=== PATIENT | female | born 1985 | race Caucasian/White ===

== ENCOUNTER 2016-12-10 21:55 | Emergency (ER) | payer MEDICAID ==
[~2016-12-10] VITALS: Ht 149.9 cm; Wt 59.5 kg
[~2016-12-10 21:55] MED LIST: ALBU8.5H3 INH; AZIT250T94 PO; BEN25 PO; D-ME473S2 PO; PRED20TA PO
[2016-12-10 22:02] VITALS: Ht 149.9 cm; Wt 59.5 kg
--- NOTE | 2016-12-10 23:19 | ERD ---
ER Documentation Chief Complaint Date/Time DATE: 12/10/16 TIME: 23:16 Chief Complaint RIGHT HAND INJURY PLAYING SOCCER HPI This 31-year-old female presents to emergency department today for right wrist/ hand injury. Injury happened earlier today while playing soccer. Patient reports that she was close contact with another player running [id number] somehow they collided. Patient reports she heard a crack in her right hand and she is been in pain ever since. Patient has limited wrist movement, and refuses to flex her fingers. Patient's hands are warm, capillary refill is brisk. Normal sensation. Patient will writes pain with movement. Patient denies any other injury, denies hitting her head or loss of consciousness. ROS All systems reviewed and are negative except as per history of present illness. Medications Home Meds Active Scripts Ibuprofen* (Motrin*) 600 Mg Tab, 600 MG PO Q6, #30 TAB Prov:MARKATILIO 12/11/16 Diphenhydramine Hcl* (Benadryl*) 25 Mg Cap, 25 MG PO Q6, #20 CAP Prov:FREDERICK SANDY PA-C 08/20/16 Dextromethorphan Hb-Promethazine Hcl* (Promethazine DM* Syrup) 473 Ml Syrup, 5 ML PO Q6 Y for COUGH, #1 BOTTLE Prov:FREDERICK SANDY PA-C 08/20/16 Azithromycin* (Zithromax*) 250 Mg Tablet, 250 MG PO .ZPACK DIRECTED, #6 TAB TAKE 500 MG (2 TABS) THE FIRST DAY THEN 250 MG (1 TAB) DAYS 2-5 Prov:FREDERICK SANDY PA-C 08/20/16 Prednisone* (Prednisone*) 20 Mg Tab, 40 MG PO DAILY for 4 Days, TAB Prov:FREDERICK SANDY PA-C 08/20/16 Reported Medications Albuterol Sulfate* (Proair HFA*) 8.5 Gm Hfa.aer.ad, 2 INH INH Q4, 0 Refills 07/19/10 Allergies Allergies: Coded Allergies: Amoxicillin (Verified Allergy, Severe, 09/30/14) PMhx/Soc History of Surgery: No Anesthesia Reaction: No Hx Neurological Disorder: No Hx Respiratory Disorders: No Hx Cardiac Disorders: No Hx Psychiatric Problems: No Hx Miscellaneous Medical Probl: No Hx Alcohol Use: No Hx Substance Use: No Hx Tobacco Use: No Smoking Status: Never smoker Physical Exam Vitals Vital Signs Date Time Temp Pulse Resp B/P Pulse Ox O2 Delivery O2 Flow Rate FiO2 12/10/16 22:02 97.4 94 16 116/87 98 Vital stable, triage notes reviewed Physical Exam Const: No acute distress Head: Atraumatic Eyes: Normal Conjunctiva ENT: Normal External Ears, Nose and Mouth. Neck: Full range of motion. Resp: Cardio: Abd: Skin: Back: Ext: Hand - bilateral: Skin: No laceration,, tenderness to right fourth and fifth metacarpal Compartments: Soft, tender, no obvious deformity Sensation: Intact shoulder/pinky/middle finger/thumb web space Bones: Hypersensitive to movement Snuffbox: Nontender bit hypersensitive to any movement Joints: No effusion Wrist: Flex/Ext: Normal Uln/Radial deviation: Normal Pron/Supination Normal Finger: Flex/Ext: Decreased movement of fingers Add/abd: Decreased Thumb: Flex/Ext: Normal Opposition: Pain with movement of phalanx to thumb fourth and fifth digit Thumbs up: Normal Neur: Awake and alert Psych: Normal Mood and Affect Results 24 hrs Current Medications Medications (Trade) Dose Ordered Sig/Ceasar Route PRN Reason Start Time Stop Time Status Last Admin Dose Admin Ibuprofen (Motrin) 600 mg ONCE ONCE PO 12/10/16 23:30 12/10/16 23:31 DC 12/10/16 23:50 Procedures/MDM PROCEDURE: XR Hand. CLINICAL INDICATION: Injury to the right hand. TECHNIQUE: AP, oblique and lateral views of the right hand were obtained. COMPARISON: No prior studies are available for comparison. FINDINGS: There is normal mineralization. Nondisplaced oblique midshaft fracture of the right fourth metacarpal. Remaining osseous structures are otherwise without evident acute fracture dislocation. There are no significant degenerative changes. There is no significant soft tissue swelling. IMPRESSION: Nondisplaced oblique midshaft fracture of the right fourth metacarpal. RPTAT: [facility] Physician Dorie Date Time Electronically viewed and signed by Physician Dorie on 12/10/2016 23:46 PROCEDURE: XR Wrist. CLINICAL INDICATION: Injury. TECHNIQUE: AP, lateral dedicated scaphoid and oblique views of the right wrist were performed. COMPARISON: No prior studies are available for comparison. FINDINGS: Nondisplaced midshaft oblique fracture of the right fourth metacarpal. Remaining osseous structures of the partially visualized right hand and the right wrist are unremarkable. The bones appear well mineralized. The joint spaces are well preserved. The soft tissues appear intact. IMPRESSION: 1. Nondisplaced midshaft oblique fracture of the right fourth metacarpal. 2. Otherwise, no acute fracture in the right wrist. Electronically viewed and signed by Physician Dorie on 12/10/2016 23:47 This pleasant 31-year-old female presents to emergency department today for right hand injury. Patient initially treated for pain with Motrin. Patient states injury happened while playing soccer, reports collided into another player. Hardy a snap and has had pain in her right hand ever since. X-rays were obtained to rule out fracture, findings: There is normal mineralization. Nondisplaced opaque midshaft fracture of the right fourth metacarpal. Remaining osseous structures are otherwise without evident acute fracture or dislocation. There are no significant degenerative changes. There is no significant soft tissue swelling. Impression; nondisplaced oblique midshaft fracture of the right fourth metacarpal. Patient was placed in a ulnar gutter with some spica splint, prescribed Motrin, she will be given a copy of radiology findings, information/referral to [facility], and information on community clinics. I feel patient can be managed by primary care physician in the outpatient setting, keep cast in place until followed up with hand specialist, return to emergency room for increased swelling, pain, or difficulty moving fingers. Splint Assessment: Neurovascularly intact post splint placement with good fit. Departure Diagnosis: Primary Impression: Fracture, metacarpal shaft Encounter type: initial encounter Metacarpal bone: fourth Fracture type: closed Fracture alignment: nondisplaced Laterality: right Qualified Code: S62.354A - Closed nondisplaced fracture of shaft of fourth metacarpal bone of right hand, initial encounter Condition: Good Patient Instructions: Fracture, Hand (Closed) Additional Instructions: Thank you for for coming to [facility] for your care today. Please ask your nurse or provider if you have questions about your care today and do not leave until all your questions have been answered. Please use any medications given as directed and follow-up with your doctor (or the doctor you were referred to) in the next 2-3 days. If you do not have a primary care doctor you may follow up at the [facility] (listed below). You may also use motrin and tylenol as needed for fever and/or pain unless instructed otherwise by your provider or nurse. Indications for more urgent follow-up have been discussed, but you may return to the Emergency Department at ANY time for any worrisome or worsening symptoms. If you have abdominal pain, please know that no test or exam you received is perfect and you should follow up within 8 hours for continued pain. If you had any imaging studies today, such as an X-Ray or CT Scan, these studies will be reviewed later by a radiologist. You will be called if there are important findings that were not identified today, so make sure the contact information you provided at registration is correct. If you received any narcotic pain control medicine today, such as Vicodin, Morphine or Dilaudid, your coordination and judgment may be affected for a number of hours. Please do not drive or operate heavy machinery, and you may want someone to assist you at home. If you were given a prescription for narcotic medication, be aware that it is very addictive- use sparingly and only if necessary. ATILIO FLORES Dec 10, 2016 23:19
[2016-12-10] MEDS ORDERED: IBUPROFEN 600 MG TAB PO ONE (23:30)
--- NOTE | 2016-12-10 23:46 | RADRPT ---
PROCEDURE: XR Hand. CLINICAL INDICATION: Injury to the right hand. TECHNIQUE: AP, oblique and lateral views of the right hand were obtained. COMPARISON: No prior studies are available for comparison. FINDINGS: There is normal mineralization. Nondisplaced oblique midshaft fracture of the right fourth metacarpal. Remaining osseous structures are otherwise without evident acute fracture dislocation. There are no significant degenerative changes. There is no significant soft tissue swelling. IMPRESSION: Nondisplaced oblique midshaft fracture of the right fourth metacarpal. RPTAT: [facility] Physician Dorie Date Time Electronically viewed and signed by Physician Dorie on 12/10/2016 23:46 RS/
--- NOTE | 2016-12-10 23:48 | RADRPT ---
PROCEDURE: XR Wrist. CLINICAL INDICATION: Injury. TECHNIQUE: AP, lateral dedicated scaphoid and oblique views of the right wrist were performed. COMPARISON: No prior studies are available for comparison. FINDINGS: Nondisplaced midshaft oblique fracture of the right fourth metacarpal. Remaining osseous structures of the partially visualized right hand and the right wrist are unremarkable. The bones appear well mineralized. The joint spaces are well preserved. The soft tissues appear intact. IMPRESSION: 1. Nondisplaced midshaft oblique fracture of the right fourth metacarpal. 2. Otherwise, no acute fracture in the right wrist. RPTAT: [facility] Physician Dorie Date Time Electronically viewed and signed by Physician Dorie on 12/10/2016 23:47 RS/
[2016-12-11] MEDS ORDERED: IBUP-1542 PO (00:07)
[2016-12-11] MEDS ORDERED: HYDR-906 PO (00:12)
== END 2016-12-11 00:55 | disposition home or self-care (01) ==
LOC: FTE 21:55
DX: S62.354A Nondisplaced fracture of shaft of fourth metacarpal bone, right hand, initial encounter for closed fracture (principal); W50.0XXA Accidental hit or strike by another person, initial encounter; Y92.9 Unspecified place or not applicable
CPT/HCPCS: 29105; 73110; 73130; Z7502; Z7610

== ENCOUNTER 2017-03-09 22:51 | Emergency (ER) | payer MEDICAID ==
[~2017-03-09] VITALS: Ht 149.9 cm; Wt 61.5 kg
[~2017-03-09 22:51] MED LIST changes: +HYDR-906 PO; +IBUP-1542 PO
[2017-03-09 22:55] VITALS: Ht 149.9 cm; Wt 61.5 kg
[2017-03-10] MEDS ORDERED: morphine 10 MG INJ IM ONE
--- NOTE | 2017-03-10 00:36 | RADRPT ---
PROCEDURE: XR hand. CLINICAL INDICATION: Trauma TECHNIQUE: AP, lateral and oblique views of the right hand was obtained. COMPARISON: There are no similar studies submitted for comparison. FINDINGS: There is normal bone mineralization. There is an acute fracture of the distal fifth metacarpal diaph ysis with overlying soft tissue swelling and moderate volar angulation as well as some comminution. No osseous erosions are identified. The joint spaces are within normal limits. IMPRESSION: Distal fifth metacarpal fracture. RPTAT: HIKT .David Carpenter MD, MD Date Time Electronically viewed and signed by .David Carpenter MD, MD on 03/10/2017 00:35 .T/
[2017-03-10] MEDS ORDERED: LIDOCAINE 1% (MDV) 20 ML INJ ONE (01:06)
[2017-03-10] MEDS ORDERED: LIDOCAINE 1% (MDV) 20 ML INJ SC ONE (01:30)
[2017-03-10] MEDS ORDERED: PROPOFOL 200 MG INJ IV ONE (02:00)
[2017-03-10] MEDS ORDERED: ONDANSETRON 4 MG INJ ONE (02:02)
[2017-03-10] MEDS ORDERED: ONDANSETRON 4 MG INJ IV STA (02:11)
--- NOTE | 2017-03-10 03:54 | RADRPT ---
PROCEDURE: XR hand. CLINICAL INDICATION: Trauma TECHNIQUE: AP, lateral and oblique views of the right hand was obtained. COMPARISON: 03/09/2017 FINDINGS: There has been interval reduction of the distal fifth metacarpal fracture. Fragments are in near an atomic alignment. An overlying splint is noted. IMPRESSION: Interval reduction of the fifth metacarpal fracture. RPTAT: HIKT .David Carpenter MD, MD Date Time Electronically viewed and signed by .David Carpenter MD, on 03/10/2017 03:54 .T/
[2017-03-10] MEDS ORDERED: KETOROLAC 30 MG INJ IV STA (04:02)
[2017-03-10] MEDS ORDERED: NAPR-688 PO (04:07)
[2017-03-10] MEDS ORDERED: HYDR-906 PO (04:07)
--- NOTE | 2017-03-10 04:26 | ERD ---
ER Documentation Chief Complaint Date/Time DATE: 03/10/17 TIME: 04:10 Chief Complaint RIGHT HAND INJURY, PUNCHED WALL, POSSIBLE DISLOCATION/FRACTURE PINKY HPI This 31-year-old female presents with right hand pain after she punched a wall for recreational reasons.. She has had swelling at the same site. She has had no other injuries. She has no trouble moving the wrist or elbow. ROS All systems reviewed and are negative except as per history of present illness. Medications Home Meds Active Scripts Naproxen* (Naproxen*) 500 Mg Tablet, 500 MG PO BID Y for PAIN, #24 TAB Prov:GREENLEDY DO 03/10/17 Hydrocodone/Acetaminophen ([place] 5-325 Tablet) 1 Each Tablet, 1 EACH PO Q6, #14 TAB Prov:GREEN,LEDY DO 03/10/17 Hydrocodone/Acetaminophen ([place] 5-325 Tablet) 1 Each Tablet, 1 TAB PO Q6H Y for PAIN, #7 TAB Prov:AMRK,ATILIO 12/11/16 Ibuprofen* (Motrin*) 600 Mg Tab, 600 MG PO Q6, #30 TAB Prov:MARK,ATILIO 17 Diphenhydramine Hcl* (Benadryl*) 25 Mg Cap, 25 MG PO Q6, #20 CAP Prov:FREDERICK SANDY PA-C 08/20/16 Dextromethorphan Hb-Promethazine Hcl* (Promethazine DM* Syrup) 473 Ml Syrup, 5 ML PO Q6 Y for COUGH, #1 BOTTLE Prov:FREDERICK SANDY PA-C 08/20/16 Azithromycin* (Zithromax*) 250 Mg Tablet, 250 MG PO .ZPACK DIRECTED, #6 TAB TAKE 500 MG (2 TABS) THE FIRST DAY THEN 250 MG (1 TAB) DAYS 2-5 Prov:FREDERICK SANDY PA-C 08/20/16 Prednisone* (Prednisone*) 20 Mg Tab, 40 MG PO DAILY for 4 Days, TAB Prov:FREDERICK SANDY PA-C 08/20/16 Reported Medications Albuterol Sulfate* (Proair HFA*) 8.5 Gm Hfa.aer.ad, 2 INH INH Q4, 0 Refills 07/19/10 Allergies Allergies: Coded Allergies: Amoxicillin (Verified Allergy, Severe, 09/30/14) PMhx/Soc History of Surgery: Yes (left ovary removed) Anesthesia Reaction: No Hx Neurological Disorder: No Hx Respiratory Disorders: Yes (asthma) Hx Cardiac Disorders: No Hx Psychiatric Problems: Yes (depression, anxiety) Hx Miscellaneous Medical Probl: No Hx Alcohol Use: No Hx Substance Use: No Hx Tobacco Use: Yes Smoking Status: Current some day smoker Physical Exam Vitals Vital Signs Date Time Temp Pulse Resp B/P Pulse Ox O2 Delivery O2 Flow Rate FiO2 03/09/17 22:55 100.0 95 17 132/63 95 Physical Exam Const: [] No distress Head: Atraumatic Eyes: Normal Conjunctiva ENT: Normal External Ears, Nose and Mouth. Resp: Clear to auscultation bilaterally Cardio: Regular rate and rhythm, no murmurs Ext: Right hand with lateral metacarpal edema and tenderness as well as slight shortening of the finger. No skin breakage noted. Distal capillary refill less than 1 second. Radial pulse intact. No tenderness palpation of the carpal bones or snuffbox. Normal elbow movement. Neur: Awake and alert and oriented 3, no focal deficit Psych: Normal Mood and Affect Results 24 hrs Current Medications Medications (Trade) Dose Ordered Sig/Ceasar Route PRN Reason Start Time Stop Time Status Last Admin Dose Admin Morphine Sulfate (morphine) 6 mg ONCE ONCE IM 03/10/17 00:00 03/10/17 00:01 DC 03/10/17 00:11 Lidocaine (Xylocaine 1% (Mdv) 20 ml) 20 ml ONCE ONCE SC 03/10/17 01:30 03/10/17 01:31 DC Lidocaine (Xylocaine 1% (Mdv) 20 ml) 20 ml STK-MED ONCE .ROUTE 03/10/17 01:06 03/10/17 01:07 DC Propofol (Diprivan) 80 mg ONCE ONCE IV 03/10/17 02:00 03/10/17 02:01 DC Ondansetron HCl (Zofran Inj) 4 mg STK-MED ONCE .ROUTE 03/10/17 02:02 03/10/17 02:03 DC Ondansetron HCl (Zofran Inj) 4 mg ONCE STAT IV 03/10/17 02:11 03/10/17 02:12 DC 03/10/17 02:13 Acetaminophen/ Hydrocodone Bitart ([place] (10/325)) 1 tab ONCE ONCE PO 03/10/17 04:30 03/10/17 04:31 Ketorolac Tromethamine (Toradol) 30 mg ONCE STAT IV 03/10/17 04:02 03/10/17 04:03 DC Procedures/MDM Boxer's fracture sustained by the normal mechanism. Reduced in the emergency room. Patient was initially given 6 mg of IM morphine. She continued to have pain. The fracture was angulated greater than 40 and closer to 75. This required reduction. Patient was afraid that she would experience too much pain during the reduction. Preprocedure sedation with propofol was performed. Patient is also given a hematoma block. Fracture reduction was perfect. Discharging the patient with [facility] hand clinic this week. X-ray interpretation right hand: Fifth metacarpal neck fracture that is angulated approximately 70 with shortening of the fifth digit. No other fracture dislocation X-ray interpretation right hand postreduction: Outstanding interval reduction of fifth metacarpal neck fracture. Splint in place. Procedural sedation note: Patient was placed on a monitor with pulse ox, and tidal CO2, respiratory at bedside. She was given insulin doses of 40 mg of propofol to 120 which provided moderate sedation. Patient did require an extra 20 during the procedure. Total of 140 mg propofol was used. Patient's vital signs remained stable. She tolerated the sedation very well all procedures performed. She emerged from sedation approximately 10 minutes later. No complications Fracture reduction note, left fifth metacarpal neck fracture: Traction was applied in the fifth digit and partially in the fourth digit by an surgical supply assistant while I manipulated the fracture fragment into place. I felt good alignment. X -ray done. Just prior to splinting confirmed good alignment. Splint was placed. Patient taught the procedure well no complications. Hematoma nerve block note: Dorsal hand was cleaned with alcohol. Approximately the mid section of the swelling and deformity 27-gauge needle was placed. There was positive blood return. I injected approximately 2 cc of lidocaine without epinephrine into the hematoma area. Patient tolerated procedure well with no complications. ED splint application note: Fiberglas splint angulated 45 of left hand is basically 1/5 metacarpal gutter splint. Fiberglass splint was placed while I held traction on the fifth digit. Patient tolerated procedure well with no complications. Informed her neurovascular assessment after the splint application the patient had good motor, capillary refill less than 1 second, was in a position of comfort.. Departure Diagnosis: Primary Impression: Displaced fracture of neck of right fifth metacarpal bone Condition: Stable Patient Instructions: Lucila Boxer's Referrals: [facility] Additional Instructions: Call your primary care doctor TOMORROW for an appointment during the next 1 WEEK.Tell the law secretary that you were referred from this facility. See the doctor sooner or return here if your condition worsens before your appointment time. LEDY JASSO DO Mar 10, 2017 04:25
[2017-03-10 04:27] VITALS: BP 116/79; PULSE 57; RESP 17; TEMP 98.7
[2017-03-10] MEDS ORDERED: HYDROCODONE/APAP (10/325) TAB PO ONE (04:30)
== END 2017-03-10 04:30 | disposition home or self-care (01) ==
LOC: E/R 22:51
DX: S62.336A Displaced fracture of neck of fifth metacarpal bone, right hand, initial encounter for closed fracture (principal); J45.909 Unspecified asthma, uncomplicated; F17.210 Nicotine dependence, cigarettes, uncomplicated; W22.8XXA Striking against or struck by other objects, initial encounter; Y92.9 Unspecified place or not applicable
CPT/HCPCS: 73120; 73130; 96372; 96374; 96375; J1885; J2270; J2405; Z7502; Z7610

== ENCOUNTER 2018-12-14 12:46 | Emergency (ER) | payer MEDICAID ==
[~2018-12-14] VITALS: Ht 157.5 cm; Wt 64.0 kg
[~2018-12-14 12:46] MED LIST changes: -ALBU8.5H3 INH; +ALBU8.5H8 INH; +AZIT250T PO; -AZIT250T94 PO; +HYDR-4011 PO; -HYDR-906 PO; +NAPR-688 PO
[2018-12-14 12:49] VITALS: Ht 157.5 cm; Wt 64.0 kg
[2018-12-14] MEDS ORDERED: ONDANSETRON (ODT) 4 MG TAB ODT STA (13:29)
[2018-12-14] MEDS ORDERED: ACETAMINOPHEN 325 MG TAB PO ONE (13:30)
[2018-12-14 13:41] VITALS: BP 108/65; PULSE 76; RESP 18
[2018-12-14] MEDS ORDERED: ACET-141 PO (14:55)
[2018-12-14] MEDS ORDERED: NITR-58 PO (14:55)
--- NOTE | 2018-12-14 14:59 | ERD ---
ER Documentation Chief Complaint Chief Complaint headache x4 days, 8wks , denies bleeding HPI 33-year-old female presents for headache times 4 days. She does have a history of migraine headaches. She also has history of asthma. Patient is currently about 8 weeks . She states that her headache on the left side, rated 9 out of 10, described as sharp and constant. She has not tried any treatments at home due to the . She denies fevers. She has nausea but denies vomiting. She denies any vision changes. She denies vaginal bleeding or pelvic pain. ROS All systems reviewed and are negative except as per history of present illness. Medications Home Meds Active Scripts Acetaminophen* (Acetaminophen*) 500 MG Extra Strength Tablet, 500 MG PO Q4H PRN for PAIN AND OR ELEVATED TEMP, #30 TAB Prov:DWAIN PATEL DO 12/14/18 Nitrofurantoin Monohyd Macrocr (Macrobid) 100 Mg Capsr, 100 MG PO BID for bacteruria for 5 Days, #10 CAP Prov:DWAIN PATEL DO 12/14/18 Naproxen* (Naproxen*) 500 Mg Tablet, 500 MG PO BID PRN for PAIN, #24 TAB Prov:LEDY JASSO DO 03/10/17 Hydrocodone/Acetaminophen (Mobile 5-325 Tablet) 1 Each Tablet, 1 EACH PO Q6, #14 TAB Prov:LEDY JASSO DO 03/10/17 Hydrocodone/Acetaminophen (Mobile 5-325 Tablet) 1 Each Tablet, 1 TAB PO Q6H PRN for PAIN, #7 TAB Prov:MARK,ATILIO 12/11/16 Ibuprofen* (Motrin*) 600 Mg Tab, 600 MG PO Q6, #30 TAB Prov:MARK,ATILIO 12/11/17 Diphenhydramine Hcl* (Benadryl*) 25 Mg Cap, 25 MG PO Q6, #20 CAP Prov:FREDERICK SANDY PA-C 08/20/16 Dextromethorphan Hb-Promethazine Hcl* (Promethazine DM* Syrup) 473 Ml Syrup, 5 ML PO Q6 PRN for COUGH, #1 BOTTLE Prov:FREDERICK SANDY PA-C 08/20/16 Azithromycin* (Zithromax*) 250 Mg Tablet, 250 MG PO .ZPACK DIRECTED, #6 TAB TAKE 500 MG (2 TABS) THE FIRST DAY THEN 250 MG (1 TAB) DAYS 2-5 Prov:FREDERICK SANDY PA-C 08/20/16 Prednisone* (Prednisone*) 20 Mg Tab, 40 MG PO DAILY for 4 Days, TAB Prov:FREDERICK SANDY PA-C 08/20/16 Reported Medications Albuterol Sulfate* (Proair HFA*) 8.5 Gm Hfa.aer.ad, 2 INH INH Q4, 0 Refills 07/19/10 Allergies Allergies: Coded Allergies: Amoxicillin (Verified Allergy, Severe, 09/30/14) PMhx/Soc History of Surgery: Yes (left ovary removed) Anesthesia Reaction: No Hx Neurological Disorder: No Hx Respiratory Disorders: Yes (asthma) Hx Cardiac Disorders: No Hx Psychiatric Problems: Yes (depression, anxiety) Hx Miscellaneous Medical Probl: No Hx Alcohol Use: No Hx Substance Use: No Hx Tobacco Use: No Smoking Status: Never smoker Physical Exam Vitals Vital Signs Date Temp Pulse Resp B/P (MAP) Pulse Ox O2 O2 Flow FiO2 Time Delivery Rate 12/14/18 97.9 76 18 108/65 100 Room Air 13:41 (79) 12/14/18 97.7 69 18 143/65 99 12:49 (91) Physical Exam Const: No acute distress Head: Atraumatic, no temporal area tenderness to palpation Eyes: Normal Conjunctiva, pupils equal, round, reactive to light bilaterally ENT: Normal External Ears, bilateral tympanic membrane intact without erythema or bulging noted, Nose and Mouth examination normal. No tonsillar swelling or exudate noted Neck: Full range of motion. No meningismus, no bruits noted Resp: Clear to auscultation bilaterally Cardio: Regular rate and rhythm, no murmurs, bilateral radial and dorsalis pedis pulses intact Skin: No petechiae or rashes Ext: No cyanosis, or edema, 5 out of 5 muscular bilateral upper and lower extremities Neur: Awake and alert, bilateral upper and lower extremity sensation intact Psych: Normal Mood and Affect Results 24 hrs Laboratory Tests Test 12/14/18 13:38 Urine Color YELLOW Urine Clarity CLOUDY Urine pH 9.0 Urine Specific [place] 1.019 Urine Ketones NEGATIVE mg/dL Urine Nitrite NEGATIVE mg/dL Urine Bilirubin NEGATIVE mg/dL Urine Urobilinogen NEGATIVE mg/dL Urine Leukocyte Esterase TRACE Nick/ul Urine Microscopic RBC 2 /HPF Urine Microscopic WBC 1 /HPF Urine Squamous Epithelial Cells MODERATE /HPF Urine Amorphous Crystals FEW /HPF Urine Bacteria FEW /HPF Urine Mucus FEW /HPF Urine Hemoglobin NEGATIVE mg/dL Urine Glucose NEGATIVE mg/dL Urine Total Protein NEGATIVE mg/dl Current Medications Medications Dose Sig/Ceasar Start Time Status Last (Trade) Ordered Route PRN Stop Time Admin Dose Reason Admin 650 mg ONCE ONCE 12/14/18 DC 12/14/18 Acetaminophen PO 13:30 12/14/18 13:37 (Tylenol 13:31 Tab) Ondansetron 4 mg ONCE STAT 12/14/18 DC 12/14/18 HCl (Zofran ODT 13:29 12/14/18 13:37 Odt) 13:31 Procedures/MDM Medical Decision Making: Differential diagnosis includes but not limited to primary headache, subarachnoid hemorrhage, meningitis, temporal arteritis, glaucoma, hypertension, cerebral ischemia, carotid or vertebral arterial dissection, brain tumor. Patient appeared well on physical examination, nontoxic appearing. No history of fever. There is low suspicion for meningitis. Given no temporal area tenderness to palpation, low suspicion for temporal arteritis. Patient has no vision changes and pupils are reactive bilaterally, low suspicion for glaucoma. There is also no focal neurologic deficits to suggest a brain tumor. Patient has normal sensation and muscle strength, low suspicion for cerebral ischemia. Patient presents to the ER with a blood pressure of 143/65. Repeat blood pressure was 108/65. No history of hypertension. Low suspicion for preeclampsia, no protein in the urine noted. Urine showed bacteriuria Given headache is similar to prior headaches, patient possibly has a primary headache. In the ER patient given Tylenol Symptoms improved with treatment. Patient given prescription for supportive medication(s) and Macrobid for bacteriuria in . Patient advised to follow up with PCP in 1-2 days. Patient advised to return to ED for new or worsening symptoms. Patient stable on discharge from the ED. Disclaimer: Inadvertent spelling and grammatical errors are likely due to EHR/dictation software use and do not reflect on the overall quality of patient care. Also, please note that the electronic time recorded on this note does not necessarily reflect the actual time of the patient encounter. Departure Diagnosis: Primary Impression: Headache Additional Impression: Antepartum asymptomatic bacteriuria Condition: Fair Patient Instructions: Self-Care for Headaches Referrals: COMMUNITY CLINICS YOU HAVE RECEIVED A MEDICAL SCREENING EXAM AND THE RESULTS INDICATE THAT YOU DO NOT HAVE A CONDITION THAT REQUIRES URGENT TREATMENT IN THE EMERGENCY DEPARTMENT. FURTHER EVALUATION AND TREATMENT OF YOUR CONDITION CAN WAIT UNTIL YOU ARE SEEN IN YOUR DOCTORS OFFICE WITHIN THE NEXT 1-2 DAYS. IT IS YOUR RESPONSIBILITY TO MAKE AN APPOINTMENT FOR FOLOW-UP CARE. IF YOU HAVE A PRIMARY DOCTOR --you should call your primary doctor and schedule an appointment IF YOU DO NOT HAVE A PRIMARY DOCTOR YOU CAN CALL OUR PHYSICIAN REFERRAL HOTLINE AT IF YOU CAN NOT AFFORD TO SEE A PHYSICIAN YOU CAN CHOSE FROM THE FOLLOWING [facility] [address] [facility]. [facility] [address] [facility] [facility] [address] [facility] [facility] [address] [facility]. [facility] [address] [facility]. [facility] [address] Additional Instructions: Call your primary care doctor TOMORROW for an appointment during the next 1-2 days.See the doctor sooner or return here if your condition worsens before your appointment time. DWAIN PATEL DO Dec 14, 2018 14:59
== END 2018-12-14 15:03 | disposition home or self-care (01) ==
LOC: FTE 12:46
DX: O99.89 Other specified diseases and conditions complicating pregnancy, childbirth and the puerperium (principal); O23.41 Unspecified infection of urinary tract in pregnancy, first trimester; R51 Headache; O99.52 Diseases of the respiratory system complicating childbirth; Z3A.01 Less than 8 weeks gestation of pregnancy
CPT/HCPCS: 81001; Z7502; Z7610; 99283